=== PATIENT | male | born 1995 | race Caucasian/White ===

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

== ENCOUNTER 2017-03-16 13:05 | Emergency (ER) | payer MEDICAID ==
[2017-03-16 13:32] VITALS: RESP 16
[2017-03-16] MEDS ORDERED: ONDANSETRON DISINTEGRATING 4 MG TAB ONE (15:54)
--- NOTE | 2017-03-16 16:12 | EDPHY ---
H & P Time Seen by Provider: 03/16/17 15:49 HPI/ROS: Chief complaint. Coughing up blood HPI. A 21-year-old male presents with upper respiratory infection and had coughed up some blood 2 days ago. It sounds like phlegm with bloody streaks. No fever. No chest discomfort. No shortness of breath. He was hospitalized several months ago for pneumonia. No bloody streaks for the last 24 hours. Vomiting x1 in the emergency department ROS Constitutional. no fever/chills, no weakness Eyes. no problems with vision ENT. no sore throat, no nasal drainage Cardiovascular. no chest pain Respiratory. No shortness of breath. Cough and bloody streaks. Abdominal. no abdominal pain, no nausea/vomiting, no diarrhea . no problems urinating MS. no calf pain/swelling, no neck/back pain, no joint pain Skin. no rash Lymph. no swollen glands Neuro. no headache, no dizziness, no difficulty walking or with speech Past Medical/Surgical History: Open heart surgery as child. Down's syndrome Social History: Single, nonsmoker, no alcohol Smoking Status: Never smoked Physical Exam: General Appearance: Alert well-developed male mild distress vital signs are stable Eyes: Pupils equal and round no pallor or injection. ENT, Mouth: Mucous membranes are moist. Respiratory: There are no retractions. Mild inspiratory expiratory rhonchi Cardiovascular: Regular rate and rhythm. Gastrointestinal: Abdomen is soft and nontender, no masses, bowel sounds normal. Neurological: Awake and alert, sensory and motor exams grossly normal. Skin: Warm and dry, no rashes. Musculoskeletal: Neck is supple nontender. Extremities symmetrical, full range of motion. Psychiatric: Patient is oriented X 3, there is no agitation. Constitutional: Initial Vital Signs Temperature (C) 36.4 C 03/16/17 13:30 Heart Rate 71 03/16/17 13:30 Respiratory Rate 16 03/16/17 13:30 Blood Pressure 133/85 H 03/16/17 13:30 O2 Sat (%) 97 03/16/17 13:30 O2 Delivery Mode Room Air Allergies/Adverse Reactions: No Known Allergies Allergy (Unverified 11/30/16 22:29) Home Medications: Medication Instructions Recorded Azithromycin [Zithromax] 500 mg PO DAILY #4 tab 12/03/16 Sodium Cl Nasal [[place] (*)] 1 spray EACHNARE PRN PRN #0 btl 12/03/16 guaiFENesin [Mucinex 600 MG (*)] 1,200 mg PO BID #0 tab.er 12/03/16 predniSONE 40 mg PO DAILY #4 tablet 12/03/16 Azithromycin [Zithromax] 250 mg PO DAILY #6 tab 03/16/17 Medical Decision Making - Diagnostics Imaging Results: Imaging Impressions Chest X-Ray 03/16/17 15:53 Impression: Negative chest. Prior cardiac surgery. Chest x-ray interpreted by me shows the prior heart surgery. Consistent with bronchitis ED Course/Re-evaluation: Re-evaluation patient is stable. The patient and his sister and I discussed treatment plan including criteria for return importance of follow-up and further evaluation. They expressed understanding and agreement Differential Diagnosis: This is consistent with bronchitis. He has had a cough. There is no pneumonia. Stable vital signs. Departure - Departure Disposition: Home, Routine, Self-Care Clinical Impression: Bronchitis Condition: Good Instructions: Acute Bronchitis (ED) Additional Instructions: Drink plenty of fluids and stay hydrated. Zithromax as antibiotic. Return for worsening symptoms. Recheck in 2 days if not improved and for continuing blood in sputum Referrals: GRAHAM KEARNEY MD [Other] - 2-3 days, if not improved Prescriptions: Azithromycin [Zithromax] 250 mg PO DAILY #6 tab
[2017-03-16 17:04] VITALS: BP 128/87; PULSE 67; TEMP 98.6; O2SAT 92
== END 2017-03-16 17:03 | disposition home or self-care (01) ==
DX: J20.9 Acute bronchitis, unspecified (principal)

== ENCOUNTER 2018-09-09 23:00 | Emergency (ER) | payer MEDICAID ==
--- NOTE | 2018-09-09 23:09 | EDPHY ---
H & P Stated Complaint: wisdom teeth out yesterday, n/v, "puking blood", "lung marin" Time Seen by Provider: 09/09/18 23:08 HPI/ROS: HPI: This is a 22-year-old male who presents with Chief Complaint: wisdom teeth out yesterday, n/v, "puking blood", "lung marin" Location: GI Quality: Nausea vomiting Duration: Since this afternoon Signs and Symptoms: no fever, + nausea, + vomiting, no hematemesis, no blood in stool, no abdominal bloating, no diarrhea, no back pain, no urinary symptoms, no testicular/groin pain, no indigestion, no chest pain, no shortness of breath Timing: Sudden onset, intermittent episodes Severity: [id number] Context: Patient has a history of Down syndrome, presents accompanied by mother and sister who works at the hospital, with complaints of nausea and vomiting that started this afternoon. Patient had 4 of his wisdom tooth removed yesterday. He was given [place] and Zofran. Patient has not been given any Zofran today. Noted decreased oral intake. Patient cap spitting up and vomiting "dark liquid that looked like blood." Patient is also complaining of right lower rib pain that is worsened with vomiting episodes. Modifying Factors: None Comment: ROS: A comprehensive 10 system review of systems is otherwise negative aside from elements mentioned in the history of present illness. 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 Lives with family. Denies drug and alcohol use. Family history noncontributory. CONSTITUTIONAL: Actively spitting up blood tinged sputum in emesis basin; mother at bedside; nontoxic in appearance; awake and alert, no obvious distress HEENT: Atraumatic and normocephalic, PERRL, EOMI. Nares patent; no rhinorrhea; no nasal mucosal edema. Tympanic membranes clear. Oropharynx clear, molar sites show no active bleeding; tissue is pink in color; no exudate and moist pink mucosa. Airway patent. No lymphadenopathy. No meningismus. Cardiovascular: Normal S1/S2, regular rate, regular rhythm, without murmur rub or gallop. PULMONARY/CHEST: Symmetrical and nontender. Clear to auscultation bilaterally. Good air movement. No accessory muscle usage. ABDOMEN: Soft, nondistended, nontender, no rebound, no guarding, no peritoneal signs, no masses or organomegaly. No CVAT. EXTREMITIES: 2/2 pulses, strength 5/5, no deformities, no clubbing, no cyanosis or edema. NEUROLOGICAL: no focal neuro deficits. GCS 15. SKIN: Warm and dry, no erythema. no rash. Good capillary refill. 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;DOWNS Syndrome - Social History Smoking Status: Never smoked Constitutional: Initial Vital Signs Temperature (C) 36.4 C 09/09/18 23:02 Heart Rate 78 09/09/18 23:02 Respiratory Rate 19 09/09/18 23:02 Blood Pressure 163/108 H 09/09/18 23:02 O2 Sat (%) 91 L 09/09/18 23:02 O2 Delivery Mode Room Air Allergies/Adverse Reactions: No Known Allergies Allergy (Unverified 09/09/18 23:02) Home Medications: Medication Instructions Recorded Azithromycin [Zithromax] 500 mg PO DAILY #4 tab 12/03/16 Sodium Cl Nasal [[facility] (*)] 1 spray EACHNARE PRN PRN #0 btl 12/03/16 guaiFENesin [Mucinex 600 MG (*)] 1,200 mg PO BID #0 tab.er 12/03/16 predniSONE 40 mg PO DAILY #4 tablet 12/03/16 Azithromycin [Zithromax] 250 mg PO DAILY #6 tab 03/16/17 Medical Decision Making ED Course/Re-evaluation: Vital signs reviewed and show elevated blood pressure and tachypnea. IV access, laboratory studies, chest x-ray obtained. Given 1 L normal saline and IV Zofran upon arrival Abdomen is soft and nontender. Doubt surgical process. Suspect this is related to surgery a medication induced nausea and vomiting. No signs of dry socket 1145: Labs reviewed. WBC 14 K likely reactive. No signs of anemia/platelet dysfunction/URMILA/elevated LFTs/electrolyte imbalance/pancreatitis. 2344: Reassessed patient. No longer vomiting. Reports mild relief of symptoms. IV promethazine 12.5 mg and another 500 cc normal saline given 1159: Chest x-ray my read shows no opacity, no effusion, no pneumothorax, no widened mediastinum. 0015: Reassessed patient. Asking for something to drink. Reports sleeping soundly for the last 45 min. No episodes of emesis since arrival to the emergency room. Reports feeling better. Drinking Sprite without difficulty. Patient will be discharged home to the care of his mother. Already has prescriptions for Zofran and [place]. This patient was seen under the supervision of my secondary supervising physician. I evaluated care for this patient independently. Discussed this patient with Dr. Olivares. Differential Diagnosis: Differential diagnosis includes but is not limited to electrolyte imbalance, gastroenteritis, opiate induced nausea, dry socket. - Data Points Laboratory Results: Laboratory Results 09/09/18 23:20 09/09/18 23:20 Medications Given: Discontinued Medications Sodium Chloride (Ns) 1,000 mls @ 0 mls/hr IV EDNOW ONE; Wide Open PRN Reason: Protocol Stop: 09/09/18 23:14 Last Admin: 09/09/18 23:22 Dose: 1,000 mls Sodium Chloride (Ns) 500 mls @ 0 mls/hr IV EDNOW ONE; Wide Open PRN Reason: Protocol Stop: 09/10/18 00:29 Last Admin: 09/10/18 00:35 Dose: 500 mls Ondansetron HCl (Zofran) 4 mg IVP EDNOW ONE Stop: 09/09/18 23:14 Last Admin: 09/09/18 23:22 Dose: 4 mg Promethazine HCl (Phenergan) 12.5 mg IVP ONCE ONE Stop: 09/09/18 23:44 Last Admin: 09/09/18 23:46 Dose: 12.5 mg Departure - Departure Disposition: Home, Routine, Self-Care Clinical Impression: Status post wisdom tooth extraction Nausea and vomiting Qualifiers: Vomiting type: unspecified Vomiting Intractability: non-intractable Qualified Code(s): R11.2 - Nausea with vomiting, unspecified Condition: Good Instructions: Acute Nausea and Vomiting (ED) Additional Instructions: Take Tylenol 650 mg every 4 hours and/or Ibuprofen 600 mg every 8 hours with food as needed for pain. Use [place] every 6 hours as needed for severe/break through pain. Do not use Tylenol and [place] concomitantly. Consume a minimum of 8-10 glasses of water or electrolyte fluid replacement drinks that include Gatorade, Powerade, Pedialyte. Eat a bland diet for the next 48 hours and then slowly advance as tolerated. Take Zofran 1 tab every 4 hours as needed for nausea, vomiting. Return to the Emergency Room if symptoms do not resolve in the next 48-72 hours , you spike a fever > 102 F, or experience intractable abdominal pain/nausea/ vomiting. Referrals: Patient,NotPresent [Primary Care Provider] - As per Instructions
[2018-09-09] MEDS ORDERED: ONDANSETRON 4 MG/2 ML VIAL IVP ONE (23:13)
[2018-09-09] MEDS ORDERED: NS 1,000 ML IV ONE (23:13)
[2018-09-09 23:29] LABS: PLATELET COUNT 217 10^3/uL (150-400)
[2018-09-09] MEDS ORDERED: PROMETHAZINE HCL 25 MG/ML INJ IVP ONE (23:43)
[2018-09-10] MEDS ORDERED: NS 500 ML IV ONE (00:28)
[2018-09-10 01:41] VITALS: BP 100/51
== END 2018-09-10 01:41 | disposition home or self-care (01) ==
DX: R11.2 Nausea with vomiting, unspecified (principal); E86.9 Volume depletion, unspecified; Q90.9 Down syndrome, unspecified; Z98.818 Other dental procedure status
CPT/HCPCS: 96374; J2405; J2550